=== PATIENT | female | born 1980 | race Caucasian/White ===

== ENCOUNTER → 2017-10-31 | Outpatient (CLI) | payer BC, OTHER ==
[~2017-10-31] MED LIST: ABAT250V; AMOCLA875 PO; AMOX500 PO; ATEN25 PO; BACPOLTO30 TOP; BENTYL20 MG PO; BIRTH CONTROL PILL; BUPR75 PO; Bactrim Ds Tab1 EACH PO; CEPH500 PO; CLIN150 PO; CLIN300 PO; Cleocin HCl300 MG PO; ERYT.5TO RIGHTEYE; FERR325 PO; GABA300 PO; GLYB2.5 PO; HYDACE5 PO; HYDR1TAB94 PO; Hydrocodone-Ap1 EA23 PO; IBUP800 PO; INSULANPEN SC; LIRA0.6P SC; LISI5 PO; LOPE2C PO; LORA.5 PO; LORA1; MEDR10 PO; META800 PO; METF500 PO; NAPR550 PO; Naprosyn500 MG PO; Norco 5-325 Ta1 EACH PO; OMEP20ER; PRAV20 PO; Prilosec Otc20 MG PO; RXNAPNA550 PO; SULTRIDS PO; VENL25 PO; YAZ BIRTH CONTROL
== END | disposition home or self-care (01) ==
LOC: LAB SHORT 11:53 → LAB 11:53
DX: L72.11 Pilar cyst (principal)
CPT/HCPCS: 88304

== ENCOUNTER 2018-05-04 15:43 | Emergency (ER) | payer OTHER ==
[~2018-05-04] VITALS: Ht 162.6 cm; Wt 93.0 kg
[~2018-05-04 15:43] MED LIST changes: -CLIN300 PO
[2018-05-04] MEDS ORDERED: CLIN300 PO (15:52)
[2018-05-04] MEDS ORDERED: Norco 5-325 Ta1 EACH PO (17:37)
[2018-05-04] MEDS ORDERED: CEPH500 PO (17:37)
[2018-05-04] MEDS ORDERED: Bactrim Ds Tab1 EACH PO (17:37)
== END 2018-05-04 17:47 | disposition home or self-care (01) ==
LOC: ER 15:43
DX: L03.213 Periorbital cellulitis (principal); Z79.899 Other long term (current) drug therapy; Z79.2 Long term (current) use of antibiotics; Z79.84 Long term (current) use of oral hypoglycemic drugs; E11.9 Type 2 diabetes mellitus without complications; F41.9 Anxiety disorder, unspecified; Z87.891 Personal history of nicotine dependence
CPT/HCPCS: 36415; 70487; 96365; 99283-25; J0690; J7030; Q9967

== ENCOUNTER → 2018-05-24 | Outpatient (CLI) | payer OTHER ==
[~2018-05-24] MED LIST changes: +CLIN300 PO
== END ==
LOC: LAB EV 13:32 → LAB SHORT 13:32
DX: N39.0 Urinary tract infection, site not specified (principal)
CPT/HCPCS: 87077; 87086; 87147; 87186

== ENCOUNTER 2018-09-30 18:07 | Emergency (ER) | payer OTHER ==
[~2018-09-30] VITALS: Ht 162.6 cm; Wt 92.1 kg
[2018-09-30] MEDS ORDERED: PREG75 PO (18:32)
[2018-09-30] MEDS ORDERED: Voltaren100 GM TOP (18:35)
== END 2018-09-30 18:38 | disposition home or self-care (01) ==
LOC: ER 18:07
DX: M17.11 Unilateral primary osteoarthritis, right knee (principal); F41.9 Anxiety disorder, unspecified; Z87.891 Personal history of nicotine dependence
CPT/HCPCS: 99283

== ENCOUNTER → 2019-02-12 | Outpatient (CLI) | payer OTHER ==
[~2019-02-12] MED LIST changes: +PREG75 PO; +Voltaren100 GM TOP
[2019-02-12 12:19] LABS: Source, Urine Clean Catch
[2019-02-12 15:23] LABS: Bilirubin, Urine Neg (Neg); Blood, Urine 5+ (Neg); Glucose Qualitative, Urine 3+ (Neg); Ketones, Urine 1+ (Neg); Leukocyte Esterase, Urine 2+ (Neg); Nitrite, Urine Pos (Neg); Protein, Urine 3+ (Neg); Specific Gravity, Urine 1.025 (1.003-1.022); Urobilinogen, Urine 1+ (Normal)
[2019-02-12 15:33] LABS: Appearance, Urine Cloudy (Clear); Color, Urine Yellow (P-Yellow)
[2019-02-12 15:37] LABS: Amorphous Mod (0-Heavy)
[2019-02-12 15:38] LABS: Bacteria Many /hpf; Red Blood Cells, Urine 50-100 /hpf (0-2); Squamous Epithelial Cells Few /hpf (Few); White Blood Cells, Urine 25-50 /hpf (0-5)
== END | disposition home or self-care (01) ==
LOC: LAB 12:12 → LAB SHORT 12:12
PROVIDERS: Internal Medicine
DX: R30.0 Dysuria (principal)
CPT/HCPCS: 81001; 87077; 87086; 87186

== ENCOUNTER 2019-03-26 01:23 | Emergency (ER) | payer OTHER ==
[~2019-03-26] VITALS: Ht 162.6 cm; Wt 93.0 kg
[2019-03-26] MEDS ORDERED: GABA300 PO (01:43)
[2019-03-26] MEDS ORDERED: PRAV20 (01:43)
== END 2019-03-26 03:04 | disposition home or self-care (01) ==
LOC: ER 01:23
DX: J02.9 Acute pharyngitis, unspecified (principal); I88.9 Nonspecific lymphadenitis, unspecified; F41.9 Anxiety disorder, unspecified; Z87.891 Personal history of nicotine dependence; Z88.6 Allergy status to analgesic agent; Z79.84 Long term (current) use of oral hypoglycemic drugs; Z79.899 Other long term (current) drug therapy
CPT/HCPCS: 87081; 96372; 99283-25; J0561; J1100

== ENCOUNTER → 2019-04-01 | Outpatient (CLI) | payer OTHER ==
[~2019-04-01] MED LIST changes: +PRAV20
[2019-04-01 15:23] LABS: Source, Urine Clean Catch
[2019-04-01 17:53] LABS: Bilirubin, Urine Neg (Neg); Blood, Urine 1+ (Neg); Glucose Qualitative, Urine 3+ (Neg); Ketones, Urine 1+ (Neg); Leukocyte Esterase, Urine 2+ (Neg); Nitrite, Urine Pos (Neg); Protein, Urine 1+ (Neg); Specific Gravity, Urine 1.025 (1.003-1.022); Urobilinogen, Urine 1+ (Normal)
[2019-04-01 18:25] LABS: Appearance, Urine Clear (Clear); Color, Urine Yellow (P-Yellow)
[2019-04-01 18:28] LABS: Bacteria Many /hpf; Squamous Epithelial Cells Few /hpf (Few); White Blood Cells, Urine 25-50 /hpf (0-5)
== END | disposition home or self-care (01) ==
LOC: LAB 15:23 → LAB SHORT 15:23 → EDSTATUS 04-01 15:05 → LAB FUT 04-01 15:05
PROVIDERS: Internal Medicine
DX: R30.0 Dysuria (principal)
CPT/HCPCS: 81001; 87077; 87086; 87186

== ENCOUNTER → 2019-04-23 | Outpatient (CLI) | payer OTHER ==
[2019-04-23 13:52] LABS: Source, Urine Clean Catch
[2019-04-23 14:37] LABS: Blood, Urine 4+ (Neg); Glucose Qualitative, Urine Neg (Neg); Ketones, Urine Neg (Neg); Leukocyte Esterase, Urine 1+ (Neg); Nitrite, Urine Pos (Neg); Protein, Urine 2+ (Neg); Specific Gravity, Urine 1.025 (1.003-1.022); Urobilinogen, Urine 3+ (Normal)
[2019-04-23 14:46] LABS: Bilirubin, Urine 3+ (Neg)
[2019-04-23 14:47] LABS: Appearance, Urine Cloudy (Clear); Color, Urine Orange (P-Yellow)
[2019-04-23 14:49] LABS: Bacteria Few /hpf; Squamous Epithelial Cells Not Seen /hpf (Few); White Blood Cells, Urine 25-50 /hpf (0-5)
== END | disposition home or self-care (01) ==
LOC: LAB 13:51 → LAB SHORT 13:51
PROVIDERS: Internal Medicine
DX: R30.0 Dysuria (principal)
CPT/HCPCS: 81001; 87086

== ENCOUNTER → 2019-06-17 | Outpatient (CLI) | payer OTHER | END | disposition home or self-care (01) | LOC: LAB SHORT 18:44 → LAB EV 18:44 | DX: N39.0 Urinary tract infection, site not specified (principal) | CPT/HCPCS: 87077; 87086; 87186 ==

== ENCOUNTER 2019-09-29 09:10 | Day surgery (SDC) | payer OTHER ==
[~2019-09-29] VITALS: Ht 162.6 cm; Wt 94.8 kg
== END 2019-09-29 11:24 | disposition home or self-care (01) ==
LOC: ORSCSDS 09:10
PROVIDERS: Otolaryngology
PROC: 0CBPXZZ Excision of Tonsils, External Approach (ICD-10-PCS; principal; 2019-09-29 11:00)
DX: J35.1 Hypertrophy of tonsils (principal); J35.01 Chronic tonsillitis; E11.9 Type 2 diabetes mellitus without complications; I10 Essential (primary) hypertension; G47.33 Obstructive sleep apnea (adult) (pediatric); F41.8 Other specified anxiety disorders; E66.9 Obesity, unspecified; Z68.35 Body mass index [BMI] 35.0-35.9, adult; Z79.84 Long term (current) use of oral hypoglycemic drugs; Z79.899 Other long term (current) drug therapy; Z87.891 Personal history of nicotine dependence
CPT/HCPCS: 82947; 88304; J1100; J2250; J2405; J2704; J2710; J3010; J7120

== ENCOUNTER → 2020-02-12 | Outpatient (CLI) | payer OTHER ==
[2020-02-12 13:46] LABS: Source, Urine Clean Catch
[2020-02-12 16:37] LABS: Bilirubin, Urine Neg (Neg); Blood, Urine 4+ (Neg); Glucose Qualitative, Urine 4+ (Neg); Ketones, Urine 1+ (Neg); Leukocyte Esterase, Urine 2+ (Neg); Nitrite, Urine Neg (Neg); Protein, Urine 2+ (Neg); Specific Gravity, Urine 1.015 (1.003-1.022); Urobilinogen, Urine NORM (Normal)
[2020-02-12 16:48] LABS: Appearance, Urine Hazy (Clear); Color, Urine Yellow (P-Yellow)
[2020-02-12 16:49] LABS: Squamous Epithelial Cells Few /hpf (Few); White Blood Cells, Urine TNTC /hpf (0-5)
[2020-02-12 16:51] LABS: Bacteria Few /hpf
[2020-02-12 16:52] LABS: Transitional Epithelial Cells Few /hpf (0-Rare)
== END | disposition home or self-care (01) ==
LOC: LAB SHORT 13:45 → LAB 13:45
PROVIDERS: Internal Medicine
DX: R30.0 Dysuria (principal)
CPT/HCPCS: 81001

== ENCOUNTER 2020-09-04 20:11 | Emergency (ER) | payer OTHER ==
[~2020-09-04] VITALS: Ht 162.6 cm; Wt 81.7 kg
[2020-09-04] MEDS ORDERED: PREGABALIN75 MG PO (20:25)
[2020-09-04] MEDS ORDERED: AMOCLA875 PO (20:42)
== END 2020-09-04 20:47 | disposition home or self-care (01) ==
LOC: ER 20:11
DX: E11.621 Type 2 diabetes mellitus with foot ulcer (principal); L97.419 Non-pressure chronic ulcer of right heel and midfoot with unspecified severity; E11.40 Type 2 diabetes mellitus with diabetic neuropathy, unspecified; Z79.899 Other long term (current) drug therapy; Z79.84 Long term (current) use of oral hypoglycemic drugs
CPT/HCPCS: 99282

== ENCOUNTER → 2021-04-22 | Outpatient (CLI) | payer OTHER ==
[~2021-04-22] MED LIST changes: +PREGABALIN75 MG PO
[2021-04-25 15:10] LABS: FINAL INTERPRETATION Negative (.); HIV 1 AB Negative (Negative); HIV 2 AB Negative (Negative)
== END | disposition home or self-care (01) ==
LOC: LAB 19:26 → LAB SHORT 19:26
PROVIDERS: Physician Assistant
DX: Z20.9 Contact with and (suspected) exposure to unspecified communicable disease (principal)
CPT/HCPCS: 86592; 86695; 86696; 86701; 86702; 87070

== ENCOUNTER → 2021-06-09 | Outpatient (CLI) | payer OTHER ==
[2021-06-13 14:08] LABS: HPV 16 Negative (Negative); HPV 18 Negative (Negative); HPV OTHER HR TYPES Negative (Negative)
== END | disposition home or self-care (01) ==
LOC: LAB SHORT 16:39
PROVIDERS: Internal Medicine
DX: Z12.4 Encounter for screening for malignant neoplasm of cervix (principal); Z86.19 Personal history of other infectious and parasitic diseases
CPT/HCPCS: 87624; G0145

== ENCOUNTER → 2024-03-24 | Outpatient (CLI) | payer OTHER ==
[2024-03-24 19:57] LABS: Candida Group, PCR NOT DETECTED (NOT DETECT); Candida glabrata-krusei, PCR NOT DETECTED (NOT DETECT)
[2024-03-24 21:04] LABS: Bacterial Vaginosis PCR Positive (NEGATIVE)
== END ==
LOC: LAB SHORT 14:37 → LAB 14:37
PROVIDERS: Obstetrics & Gynecology
DX: N76.0 Acute vaginitis (principal)
CPT/HCPCS: 87481; 87661; 87801

== ENCOUNTER → 2024-06-03 | Outpatient (CLI) | payer OTHER ==
[2024-06-03 22:07] LABS: Bacterial Vaginosis PCR Negative (NEGATIVE); Candida Group, PCR NOT DETECTED (NOT DETECT); Candida glabrata-krusei, PCR NOT DETECTED (NOT DETECT)
== END | disposition home or self-care (01) ==
LOC: LAB SHORT 16:59 → LAB 16:59
PROVIDERS: Advanced Practice Midwife
DX: N76.0 Acute vaginitis (principal); B96.89 Other specified bacterial agents as the cause of diseases classified elsewhere
CPT/HCPCS: 87481; 87661; 87801

== ENCOUNTER 2025-04-09 10:50 | Day surgery (SDC) | payer OTHER ==
[~2025-04-09] VITALS: Ht 162.6 cm; Wt 77.0 kg
[2025-04-09] VITALS (8 sets, daily range): BP systolic 95–109; BP diastolic 39–98
[~2025-04-09 10:50] MED LIST changes: +ACET500 PO; +BUPR150ER PO; +CeFAZolin Sodium 2,000 MG in NS 100 ML IV SCH; +OXYC5 PO; +OZEMPIC1 MG/0.72 SC; -PRAV20; +SIME80CH PO; +Tranexamic Acid 100 ML IV SCH; +VENL150ER PO; -VENL25 PO; +VENLAFAXINE H37.5 M1 PO; +[UNRECOGNIZED DRUG - OTHER] VAG
[2025-04-09] MEDS ORDERED: Bupivacaine 0.5% W/EPI 1:200000 SDV 30 ML Vial ONE (11:45)
[2025-04-09] MEDS ORDERED: EPINEPhrine HCl 1 MG / ML 30ML Vial ONE (11:45)
--- NOTE | 2025-04-09 11:50 | NUR ---
History, Chart, Medications and Allergies reviewed before start of procedure.PRE OP TEACHING DONE. MOTHER AT BEDSIDE
[2025-04-09] MEDS ORDERED: FentaNYL Citrate 50 MCG/ML 2 ML Injection ONE (11:55)
[2025-04-09] MEDS ORDERED: Midazolam HCl 1MG / ML 2ML Vial ONE (11:55)
[2025-04-09] MEDS ORDERED: Rocuronium Bromide 10 MG/ML 5ML Injection IV ONE ×2 (11:58)
--- NOTE | 2025-04-09 12:04 | NUR ---
NERVE BLOCK INTERSCALENE BLOCK TIMOUT OUT PERFORMED WITH START: 1215 END: 1218 PT MONITORED T\O PROCEDURE VSS
[2025-04-09] MEDS ORDERED: Dexamethasone Sod Phos 10 MG/ML 1ML VIAL ONE (12:30)
[2025-04-09] MEDS ORDERED: Ondansetron HCl 2 MG / ML 2ML Vial ONE (12:30)
[2025-04-09] MEDS ORDERED: ePHEDrine Sulfate 50 MG/ML 1ML Injection ONE (12:48)
[2025-04-09] MEDS ORDERED: Phenylephrine HCl 100 MCG/ML-NS 10MLSYR (1MG/10ML) ONE (13:28)
[2025-04-09] MEDS ORDERED: Sugammadex Sodium 200 MG/2ML SDV (100 MG/ML) ONE (14:38)
--- NOTE | 2025-04-09 16:21 | NUR ---
Patient up to Ambulate independently. Gait steady. Discharge instructions reviewed with patient. Patient verbalizes understanding. Copy given to patient to take home. Discharged via wheelchair to private car for ride home.
== END 2025-04-09 16:15 | disposition home or self-care (01) ==
LOC: ORSCMMR 10:50
PROVIDERS: Orthopaedic Surgery Sports Medicine
PROC: 0RNJ4ZZ Release Right Shoulder Joint, Percutaneous Endoscopic Approach (ICD-10-PCS; principal; 2025-04-09 11:30)
DX: M75.101 Unspecified rotator cuff tear or rupture of right shoulder, not specified as traumatic (principal); M75.31 Calcific tendinitis of right shoulder; G47.33 Obstructive sleep apnea (adult) (pediatric); F41.8 Other specified anxiety disorders; Z79.85 Long-term (current) use of injectable non-insulin antidiabetic drugs; Z79.899 Other long term (current) drug therapy
CPT/HCPCS: 82947; C1713; J0165; J0690; J1100; J2250; J2371; J2405; J2704; J3010; J7120

== ENCOUNTER → 2025-04-22 | Outpatient (CLI) | payer OTHER ==
[~2025-04-22] MED LIST changes: -CeFAZolin Sodium 2,000 MG in NS 100 ML IV SCH; -Tranexamic Acid 100 ML IV SCH
[2025-04-22 10:41] LABS: Source, Urine Clean Catch
[2025-04-22 13:13] LABS: Bilirubin, Urine Neg (Neg); Glucose Qualitative, Urine Neg (Neg); Ketones, Urine 2+ (Neg); Leukocyte Esterase, Urine 3+ (Neg); Protein, Urine 3+ (Neg); Specific Gravity, Urine 1.030 (1.003-1.022); Urobilinogen, Urine NORM (Normal)
[2025-04-22 13:26] LABS: Color, Urine Yellow (P-Yellow)
[2025-04-22 13:27] LABS: Red Blood Cells, Urine TNTC /hpf (0-2); White Blood Cells, Urine TNTC /hpf (0-5)
== END | disposition home or self-care (01) ==
LOC: LAB SHORT 10:39 → LAB 10:39
PROVIDERS: Internal Medicine
DX: R30.0 Dysuria (principal)
CPT/HCPCS: 81001; 87077; 87086; 87147; 87186

== ENCOUNTER → 2025-05-25 | Outpatient (CLI) | payer BC, OTHER ==
[2025-05-25 16:21] LABS: Source, Urine Clean Catch
[2025-05-25 18:32] LABS: Bilirubin, Urine Neg (Neg); Color, Urine Yellow (P-Yellow); Glucose Qualitative, Urine Neg (Neg); Ketones, Urine 1+ (Neg); Leukocyte Esterase, Urine Neg (Neg); Protein, Urine 2+ (Neg); Specific Gravity, Urine 1.015 (1.003-1.022); Urobilinogen, Urine NORM (Normal)
[2025-05-25 18:37] LABS: Red Blood Cells, Urine 0-2 /hpf (0-2)
== END ==
LOC: LAB SHORT 16:16 → LAB 16:16
PROVIDERS: Obstetrics & Gynecology
DX: R30.0 Dysuria (principal)
CPT/HCPCS: 81001

== ENCOUNTER → 2025-05-28 | Outpatient (CLI) | payer BC, OTHER ==
[2025-05-28 16:49] LABS: Candida Group, PCR NOT DETECTED (NOT DETECT); Candida glabrata-krusei, PCR NOT DETECTED (NOT DETECT)
[2025-05-28 17:28] LABS: Bacterial Vaginosis PCR Positive (NEGATIVE)
== END ==
LOC: LAB SHORT 13:40 → LAB 13:40
PROVIDERS: Obstetrics & Gynecology
DX: N76.0 Acute vaginitis (principal)
CPT/HCPCS: 81515

== ENCOUNTER → 2025-07-15 | Outpatient (CLI) | payer BC, OTHER | END | disposition home or self-care (01) | LOC: LAB SHORT 11:27 | DX: N39.0 Urinary tract infection, site not specified (principal) | CPT/HCPCS: 87077; 87086; 87186 ==

== ENCOUNTER → 2025-08-20 | Outpatient (CLI) | payer BC, OTHER ==
[2025-08-20 19:58] LABS: Bacterial Vaginosis PCR Negative (NEGATIVE); Candida glabrata-krusei, PCR NOT DETECTED (NOT DETECT)
[2025-08-20 20:06] LABS: Candida Group, PCR DETECTED (NOT DETECT)
== END ==
LOC: LAB SHORT 17:48 → LAB 17:48
PROVIDERS: Obstetrics & Gynecology
DX: A49.9 Bacterial infection, unspecified (principal)
CPT/HCPCS: 81515